=== PATIENT | female | born 1935 | race Caucasian/White ===

== ENCOUNTER 2019-06-03 01:53 | Emergency (ER) | payer OTHER ==
[2019-06-03 02:35] VITALS: BP 157/63; PULSE 59; TEMP 98.1; BMI 23.8
--- NOTE | 2019-06-03 03:21 | PDOC ---
History of Present Illness - General Chief Complaint: Headache Stated Complaint: HEADACHE,BACK/NECK PAIN Time Seen by Provider: 06/03/19 03:20 History Source: Patient Exam Limitations: No Limitations - History of Present Illness Initial Comments: 06/05/19 07:24 HPI: 83F PMH COPD (bipap) HTN presenting w/ imbalance, neck pain, and occipital headache since 8pm 06/02/19. Denies h/o headaches. Denies n/v, numbness, tingling, changes in vision / hearing. Endorsing vague chest pain that started w / symptoms. ENdorses 1 week of nonproductive cough and generalized weakness. No sick contacts or recent abx use. Past History - Past Medical History Allergies/Adverse Reactions: Allergies Allergy/AdvReac Type Severity Reaction Status Date / Time No Known Allergies Allergy Verified 06/03/19 02:36 Home Medications: Ambulatory Orders Naproxen [Naprosyn -] 500 mg PO BID #30 tablet 12/26/13 No Home Medications 0 dose .ROUTE UTDICT 12/26/13 Sulfamethoxazole/Trimethoprim [Bactrim Ds -] 1 tab PO BID #6 tablet 06/15/15 HTN: Yes - Psycho Social/Smoking Cessation Hx Smoking History: Never smoked Have you smoked in the past 12 months: Yes Number of Cigarettes Smoked Daily: 2 'Breaking Loose' booklet given: 12/26/13 Hx Alcohol Use: No Drug/Substance Use Hx: No Substance Use Type: None Review of Systems - Review of Systems Able to Perform ROS?: Yes Comments:: 06/05/19 07:24 ROS: CONSTITUTIONAL: Endorses a week of generalized weakness. Denies F / C HEENT: Endorses occipital headache and neck pain. Denies changes in vision / hearing. Denies sore throat, rhinorrhea. RESP: Endorses 1 day nonproductive cough. Denies SOB, cough, orthopnea, MCKEON CARD: Denies chest pain, palpitations GI: Denies N / V / D, abdominal pain, bloody stool, inability to tolerate PO : Denies dysuria, frequency SKIN: Denies rashes NEURO: Endorses sense of imbalance. Denies numbness, tingling Is the patient limited Maltese proficient: No *Physical Exam - Vital Signs Last Vital Signs Temp Pulse Resp BP Pulse Ox 98.1 F 59 L 17 157/63 97 06/03/19 01:55 06/03/19 01:55 06/03/19 01:55 06/03/19 01:55 06/03/19 01:55 - Physical Exam Comments: 06/05/19 07:24 PE: GEN: Well appearing, NAD, comfortable. AAOx3 HEENT: NC/AT, CN II-XII intact, EOMI, PERRLA. No facial asymmetry. Moist mucous membranes. Normal voice. EAC and TM clear b/l. FROM w/ pain. Exquisite TTP of the occipital scalp, no bony deformities. No midline TTP BACK: no deformities, no step offs, no TTP CV: S1/S2, RRR, no m/r/g LUNG: CTAB, no wheezes, crackles, rales, rhonchi GI: soft, ndnt, +BS, no guarding, no rebound. No masses. Neg CVAT b/l EXTREMITIES: No LE edema. No obvious deformities of all extremities SKIN: warm, dry, normal turgor PSYCH: normal mood and affect NEURO: 5/5 UE LE strength b/l. symmetric sensation. neg pronator drift, no romberg. Unsteady gait. ED Treatment Course - LABORATORY CBC & Chemistry Diagram: 06/03/19 04:30 06/03/19 04:30 Medical Decision Making - Medical Decision Making 06/03/19 04:38 MDM: 83F c/o 1 night of imbalance, neck pain, occipital headache. Afebrile, baseline mental status. DDx - concern for intracranial process vs vertebral artery process, ACS - CBC, CMP, Cardiac, Coags - EKG, CXR - CT Head - tylenol 06/03/19 05:17 labs reviewed elevated BUN pt feels much better s/p tylenol; pain resolved. NS bolus to rehydrate; pt states she didnt eat or drink too much the day before 06/03/19 05:42 [facility] HEAD IMPRESSION No acute intracranial changes. Intracranial atherosclerosis. 06/03/19 06:33 patient ambulating independently w/o imbalance f/u UA 06/03/19 06:52 UA neg DC home w/ pcp f/u return precautions Discharge - Discharge Information Problems reviewed: Yes Clinical Impression/Diagnosis: Dehydration Condition: Fair Disposition: HOME - Admission No - Follow up/Referral Referrals: Ilia Mercado MD [Primary Care Provider] - - Patient Discharge Instructions Patient Printed Discharge Instructions: DI for Dehydration -- Adult Additional Instructions: Take tylenol as directed by the label for pain Remember to drink plenty of fluids Follow up with your primary care doctor in the next the 2-4 days regarding your symptoms. IMMEDIATELY return to the closest emergency department for worsening, new, or concerning symptoms. - Post Discharge Activity
[2019-06-03] MEDS ORDERED: ACETAMINOPHEN 1000 MG/100 ML VIAL (NON FORMULARY) IVPB ONE (04:09)
[2019-06-03] MEDS ORDERED: ACETAMINOPHEN INJECTION 100 ML IVPB ONE (04:26)
[2019-06-03 04:49] LABS: BASO % 0.9 % (0-2.0); EOS % 4.4 % (0-4.5); HEMATOCRIT 39.4 % (32.4-45.2); HEMOGLOBIN 13.4 GM/dL (10.7-15.3); LYMPH % 20.4 % (8-40); MCH 30.8 pg (25.7-33.7); MCHC 34.1 g/dl (32.0-36.0); MEAN CELL VOLUME 90.3 fl (80-96); MEAN PLT VOLUME 10.4 fl (7.5-11.1); MONO % 7.4 % (3.8-10.2); NEUT % 66.9 % (42.8-82.8); PLATELET COUNT 175 K/MM3 (134-434); RBC 4.36 M/mm3 (3.60-5.2); WHITE BLOOD COUNT 7.9 K/mm3 (4.0-10.0)
[2019-06-03 05:08] LABS: INR 1.19 (0.83-1.09); PROTHROMBIN TIME (PATIENT) 14.1 SEC (9.7-13.0)
[2019-06-03 05:09] LABS: ALBUMIN 3.3 g/dl (3.4-5.0); ALK PHOS 71 U/L (45-117); ANION GAP 4 MMOL/L (8-16); BILIRUBIN,TOTAL 0.4 mg/dL (0.2-1); BLOOD UREA NITROGEN 22.8 mg/dL (7-18); CALCIUM 8.8 mg/dL (8.5-10.1); CHLORIDE 108 mmol/L (98-107); CO2 30 mmol/L (21-32); CREATININE 0.4 mg/dL (0.55-1.3); GLUCOSE,RANDOM 93 mg/dL (74-106); POTASSIUM 4.3 mmol/L (3.5-5.1); SGOT/AST 15 U/L (15-37); SGPT/ALT 17 U/L (13-61); SODIUM 142 mmol/L (136-145); TOT PROT 6.8 g/dl (6.4-8.2)
[2019-06-03] MEDS ORDERED: SODIUM CHLORIDE 0.9% 500 ML INFUS.BAG IV ONE (05:16)
[2019-06-03 06:49] LABS: URINE APPEARANCE CLEAR; URINE BILIRUBIN NEGATIVE (NEGATIVE); URINE COLOR YELLOW; URINE GLUCOSE (UA) NEGATIVE (NEGATIVE); URINE KETONE NEGATIVE (NEGATIVE); URINE LEUK ESTERASE NEGATIVE (NEGATIVE); URINE NITRITE NEGATIVE (NEGATIVE); URINE PROTEIN NEGATIVE (NEGATIVE); URINE UROBILINOGEN 0.2 mg/dL (0.2-1.0)
[2019-06-03 06:58] LABS: HYALINE CASTS 3 /lpf (0-8); URINE BACTERIA 7.9 /hpf (NEGATIVE); URINE RBC 1 /hpf (0-4); URINE WBC 1 /hpf (0-5)
--- NOTE | 2019-06-03 08:19 | PDOC ---
Attending Attestation - Resident Resident Name: Red Mota - ED Attending Attestation I have performed the following: I have examined & evaluated the patient, The case was reviewed & discussed with the resident, I agree w/resident's findings & plan, Exceptions are as noted - HPI HPI: 06/03/19 08:15 83F pmh COPD, HTN, here with 1 week of cough now with occipital headache, weakness, difficulty walking. - Physicial Exam PE: 06/03/19 08:16 Agree with exam as documented by resident - Medical Decision Making 06/03/19 08:17 New JUAREZ with weakness, ?dizziness Consider viral illness, dehydration, electrolyte imbalance Eval for bleed, less concern but also possible central ischemia f/u ct b symptomatic tx Imaging negative Significant symptomatic improvement with hydration Non-focal neurologic exam dc
--- NOTE | 2019-06-03 14:27 | EKG ---
Test Reason : Blood Pressure : / mmHG Vent. Rate : 050 BPM Atrial Rate : 050 BPM P-R Int : 128 ms QRS Dur : 078 ms QT Int : 468 ms P-R-T Axes : 053 014 031 degrees QTc Int : 426 ms POOR DATA QUALITY, INTERPRETATION MAY BE ADVERSELY AFFECTED SINUS BRADYCARDIA MINIMAL VOLTAGE CRITERIA FOR LVH, MAY BE NORMAL VARIANT JUNCTIONAL ST DEPRESSION, PROBABLY NORMAL NO PREVIOUS ECGS AVAILABLE Confirmed by ALAN BUENO, SANDRA ([id number]) on 06/03/2019 2:26:43 PM Referred By: Confirmed By:SANDRA PHILLIPS MD
== END 2019-06-03 07:08 | disposition home or self-care (01) ==
LOC: JER 01:53
PROC: 3E033NZ Introduction of Analgesics, Hypnotics, Sedatives into Peripheral Vein, Percutaneous Approach (ICD-10-PCS; principal; 2019-06-03)
PROC: 3E0337Z Introduction of Electrolytic and Water Balance Substance into Peripheral Vein, Percutaneous Approach (ICD-10-PCS; 2019-06-03)
DX: E86.0 Dehydration (principal); I10 Essential (primary) hypertension
CPT/HCPCS: 36415; 70450-TC; 71045-TC-FY; 80053; 81003; 82550; 82962; 84484; 85025; 85610; 85730; 93005; 93010; 96361; 96374; 99283-25; J0131

== ENCOUNTER 2021-08-18 10:56 | Emergency (ER) | payer OTHER ==
[2021-08-18 11:03] VITALS: BP 133/69; PULSE 88; TEMP 97; BMI 20.1
[2021-08-18] MEDS ORDERED: ACETAMINOPHEN 500 MG TABLET (FP) PO ONE (11:47)
[2021-08-18] MEDS ORDERED: ACETAMINOPHEN 500 MG TABLET (FP) ONE (13:15)
== END 2021-08-18 14:06 | disposition home or self-care (01) ==
LOC: JER 10:56 → JERFT 10:56
DX: M25.511 Pain in right shoulder (principal)
CPT/HCPCS: 73030-TC-RT-FY; 93971; 99284-25